=== PATIENT | male | born 1950 | race Caucasian/White ===

== ENCOUNTER 2020-12-08 11:46 | Outpatient (REF) | payer MEDICARE, SELFPAY ==
[2020-12-08 13:49] LABS: Syphilis Screen Nonreactive (Nonreactive)
[2020-12-08 13:57] LABS: Folate 17.5 ng/mL (> or = 4.0); Vitamin B12 421 pg/mL (200-900)
[2020-12-10 02:26] LABS: Lyme Abs Screen <0.90 index
[2020-12-12 11:22] LABS: Vitamin B1 15 nmol/L (8-30)
== END 2020-12-08 11:47 | disposition home or self-care (01) ==
LOC: HO.LAB 11:46
PROVIDERS: PCP Internal Medicine; Visit Provider Psychiatry & Neurology Neurology
DX: G93.9 Disorder of brain, unspecified (principal)
CPT/HCPCS: 36415; 82607; 82746; 84425; 86617; 86618; 86780